=== PATIENT | male | born 1975 | race Two or more races ===

== ENCOUNTER 2016-12-11 12:07 | Emergency (ER) | payer MEDICAID ==
[2016-12-11 12:29] VITALS: RESP 20
[2016-12-11] MEDS ORDERED: ALBUTEROL NEB SOL 2.5MG/3ML 1 VIAL SOL NEB ONE (13:02)
[2016-12-11] MEDS ORDERED: ALBUTEROL NEB SOL 2.5MG/3ML 1 VIAL SOL ONE (13:04)
[2016-12-11] MEDS ORDERED: ALBUTEROL/IPRATROPIUM 1 VIAL SOL INH ONE (13:05)
[2016-12-11] MEDS ORDERED: ALBUTEROL/IPRATROPIUM 1 VIAL SOL ONE (13:06)
[2016-12-11 13:09] VITALS: BP 123/86; TEMP 97.7
[2016-12-11] MEDS ORDERED: PREDNISONE 20 MG TAB PO ONE (13:16)
[2016-12-11] MEDS ORDERED: PREDNISONE 20 MG TAB ONE (13:17)
[2016-12-11 13:27] VITALS: PULSE 98; O2SAT 98
== END 2016-12-11 14:22 | disposition home or self-care (01) | DRG 203 ==
LOC: ED 12:07
DX: J45.41 Moderate persistent asthma with (acute) exacerbation (principal); K21.9 Gastro-esophageal reflux disease without esophagitis
CPT/HCPCS: 71010; 99283; J7603; J7620